=== PATIENT | female | born 1955 | race Caucasian/White ===

== ENCOUNTER → 2018-05-24 | Day surgery (SDC) | payer OTHER, MEDICAID ==
--- NOTE | 2018-05-21 16:16 | PCM.EKG ---
[facility] Test Date: 2018-05-21 Test Time: 16:15:33 Pat Name: JAMES GÓMEZ Department: Room: Gender: F Container Coordinator: : 1955 Requested By: FERNANDO PEACE Order Number: [id number] Reading MD: Arsalan Rosen Measurements Intervals [place] Rate: 77 P: 63 [place]: 148 QRS: 59 QRSD: 84 T: 52 QT: 366 QTc: 414 Interpretive Statements Normal sinus rhythm Normal ECG Compared to ECG 04/09/2018 09:58:25 No significant changes Electronically Signed On 05-22-2018 9:23:35 CDT by Arsalan Rosen Please click the below link to view image of tracing.
[2018-05-21 16:20] LABS: HEMOGLOBIN 12.3 g/dL (12.0-15.0); MEAN CELL HGB 29.6 pg (26-34); MEAN CELL HGB CONCENTRATION 31.5 g/dL (33-37); MEAN PLATELET VOLUME 10.6 fL (7.8-11.0); RED CELL DISTRIBUTION WIDTH 13.9 % (11.5-14.5); WHITE BLOOD CELL 6.5 10^3/uL (4.5-11.0)
[2018-05-21 16:56] LABS: CARBON DIOXIDE 28.1 mmol/L (20.0-32)
[~2018-05-24] VITALS: Ht 172.7 cm; Wt 76.2 kg
[2018-05-24] VITALS (13 sets, daily range): BP systolic 87–122; BP diastolic 51–71
[~2018-05-24] MED LIST: ACET-687 PO; BENADRYL ONE; CLONIDINE 1,000 MCG/10 ML VIAL EP ONE; CYCL10TA2 PO; DECADRON ONE; DEMEROL IV PRN; DILAUDID IV PRN; DIPRIVAN IV ONE; GABA300C10 PO; GABA600T2 PO; IBUP-1131 PO; LACTATED RINGERS 1,000 ML IV SCH; LACTATED RINGERS 1,000 ML SCH; LIDOCAINE 2% VIAL ONE; NAROPIN 0.5% 5 MG/ML VIAL ONE; NS 100ML 100 ML IV ONE; NS 250ML 250 ML IV ONE; PANT40TA3 PO; PARO20TA4 PO; PARO40TA3 PO; PHENERGAN IV PRN; SODIUM CHLORIDE IR ONE; SUBLIMAZE IV PRN; SUBLIMAZE ONE; SULF500T7 PO; TORADOL ONE; TRAM50TA PO; VANCOMYCIN HCL 1 GM ONE; VERSED ONE; ZOFRAN IV PRN; ZOFRAN ONE
--- NOTE | 2018-05-24 11:55 | OPH ---
DATE OF SURGERY: 05/24/2018 PREOPERATIVE DIAGNOSIS: Displaced closed right distal radius fracture. POSTOPERATIVE DIAGNOSIS: Displaced closed right distal radius fracture. OPERATIVE PROCEDURE: Open reduction and internal fixation with a Synthes volar locking plate. SURGEON: David Ledesma MD ANESTHESIA: LMA. TOURNIQUET TIME: 57 minutes at 300 mmHg. DRAINS: None. BLOOD LOSS: 10 mL. DESCRIPTION OF INDICATIONS: The patient is a 62-year-old [id number] female who fell out of her wheelchair about 5 days ago suffering a displaced right distal radius fracture. She also has a fracture of the distal aspect of her ulna, which is nondisplaced. The patient is currently recovering from a left tibial plateau fracture that she suffered about 5-6 weeks ago. The patient's x-rays show that she had a dorsally displaced right distal radius fracture. The neurovascular exam was normal. She was taken to the operating room today for open reduction and internal fixation. DESCRIPTION OF PROCEDURE: The patient was placed on the operating table in the supine position. LMA anesthetic was induced without difficulty. The patient had a well-padded tourniquet placed around the right upper extremity. Right upper extremity was then sterilely prepped and draped. The patient had the arm exsanguinated and the tourniquet was inflated to 300 mmHg. The patient had a volar incision made on the volar radial aspect of the wrist in line with the wrist flexor tendon. The incision was taken through the skin and the subcutaneous tissue. The sheath of the flexor carpi radialis was then opened and the tendon was retracted ulnarly. The fascial level was then opened and then the flexor tendons were again reflected ulnarly. The pronator quadratus was released off of the radial aspect of the distal radius. The fracture was identified and then reduced. We placed a 3-hole volar locking plate about the volar aspect of the distal radius. We placed a 2.7 cortical screw in the oblong hole in the proximal portion of the bone. AP and lateral C-arm view showed satisfactory positioning of the hardware and satisfactory reduction of the fracture. A second 2.7 cortical screw was then placed distally. Again, the reduction appeared to be satisfactory and the hardware position was satisfactory. The patient then had the 3 remaining distal locking screws placed in the distal radius. On the proximal end of the plate, we used a second 2.7 cortical screw with good purchase. Final AP and lateral views showed that the fracture was well reduced and the hardware is in good position. The wounds were then copiously irrigated. The pronator quadratus was closed over the plate with a 2-0 Monocryl. The subcutaneous was then closed with a 2-0 Monocryl in an interrupted manner. The skin was closed with a 3-0 Ethilon in a horizontal mattress method. A compressive dressing and a volar splint was applied. The patient was extubated in the operating room, sent to recovery in stable condition. David Ledesma MD DR: TANIA/rebekah JOB# [id number]
--- NOTE | 2018-05-24 12:02 | DIREP ---
PROCEDURE:XRAY WRIST MIN 3VW-RT COMPARISON:[facility] Jarvis, WRIST 2 VIEW RIGHT, 05/20/2018, 07:45 PM. INDICATIONS:POST ORIF OF THE WRIST FINDINGS: Three views of the right wrist through radiopaque splint material. There has been interval internal fixation with a plate and screw of the comminuted right distal radial fracture. There is also a comminuted distal ulnar fracture and avulsion fracture of the ulnar styloid which demonstrates improved alignment on comparison to prior. No unexpected radiopaque foreign body. CONCLUSION: 1. Interval fixation with a plate and screw of comminuted right distal radial fracture. 2. Improved alignment of comminuted right ulnar fracture. Dictated by: Emely Cook MD on 05/24/2018 at 11:58 AM
== END | disposition home or self-care (01) ==
LOC: SDC 04:56
PROVIDERS: ATTEND Orthopaedic Surgery
DX: S52.591A Other fractures of lower end of right radius, initial encounter for closed fracture (principal); W07.XXXA Fall from chair, initial encounter; Y93.89 Activity, other specified; Y92.89 Other specified places as the place of occurrence of the external cause; Y99.8 Other external cause status; F17.210 Nicotine dependence, cigarettes, uncomplicated; E66.3 Overweight; Z68.25 Body mass index [BMI] 25.0-25.9, adult; Z90.710 Acquired absence of both cervix and uterus; Z90.49 Acquired absence of other specified parts of digestive tract; Z88.1 Allergy status to other antibiotic agents; Z88.0 Allergy status to penicillin; Z79.1 Long term (current) use of non-steroidal anti-inflammatories (NSAID); Z79.899 Other long term (current) drug therapy; Z98.890 Other specified postprocedural states; Z80.7 Family history of other malignant neoplasms of lymphoid, hematopoietic and related tissues; Z80.41 Family history of malignant neoplasm of ovary; Z82.5 Family history of asthma and other chronic lower respiratory diseases
CPT/HCPCS: 25607; 36415 ×2; 64415; 73110; 76000; 80051; 84132; 84439; 84443; 85027; 93005; J1100; J1200; J1885; J2001 ×2; J2250; J2405; J2795; J3010; J3490; J7030; J7050 ×2; A4217; C1713

== ENCOUNTER → 2018-07-16 | Outpatient (CLI) | payer OTHER, MEDICAID ==
[~2018-07-16] MED LIST changes: -BENADRYL ONE; -CLONIDINE 1,000 MCG/10 ML VIAL EP ONE; -DECADRON ONE; -DEMEROL IV PRN; -DILAUDID IV PRN; -DIPRIVAN IV ONE; -LACTATED RINGERS 1,000 ML IV SCH; -LACTATED RINGERS 1,000 ML SCH; -LIDOCAINE 2% VIAL ONE; -NAROPIN 0.5% 5 MG/ML VIAL ONE; -NS 100ML 100 ML IV ONE; -NS 250ML 250 ML IV ONE; -PHENERGAN IV PRN; -SODIUM CHLORIDE IR ONE; -SUBLIMAZE IV PRN; -SUBLIMAZE ONE; -TORADOL ONE; -VANCOMYCIN HCL 1 GM ONE; -VERSED ONE; -ZOFRAN IV PRN; -ZOFRAN ONE
[2018-07-16 10:47] LABS: HEMOGLOBIN 12.9 g/dL (12.0-15.0); MEAN CELL HGB 28.7 pg (26-34); MEAN CELL HGB CONCENTRATION 30.9 g/dL (33-37); MEAN CORP VOLUME 93.1 fL (78-100); MEAN PLATELET VOLUME 10.1 fL (7.8-11.0); RED CELL DISTRIBUTION WIDTH 14.3 % (11.5-14.5); WHITE BLOOD CELL 5.8 10^3/uL (4.5-11.0)
[2018-07-16 11:29] LABS: CALCIUM 9.6 mg/dL (8.4-10.5); CARBON DIOXIDE 28.1 mmol/L (20.0-32)
== END | disposition home or self-care (01) ==
LOC: LAB 10:30
PROVIDERS: ATTEND Nurse Practitioner Family
DX: E55.9 Vitamin D deficiency, unspecified (principal); R53.83 Other fatigue; J44.9 Chronic obstructive pulmonary disease, unspecified; R53.81 Other malaise
CPT/HCPCS: 36415; 80053; 80061; 82306; 82607; 83970; 84100; 84439; 84443; 84480; 85027

== ENCOUNTER → 2018-07-23 | Outpatient (CLI) | payer OTHER, MEDICAID ==
--- NOTE | 2018-07-23 13:25 | DIREP ---
PROCEDURE:Digital Screening Mammogram TECHNIQUE:MLO and CC digital images of each breast are provided. Computer Assisted Detection (CAD) was utilized. COMPARISON:None. INDICATIONS:SCREENING BREAST COMPOSITION:There are scattered areas of fibroglandular density. FINDINGS:There are no grouped microcalcifications, masses, or architectural distortions to suggest malignancy. IMPRESSION:No mammographic evidence of malignancy. RECOMMENDATIONS:Routine Screening Mammography per [employer] guidelines. OVERALL FINAL ASSESSMENT:BI-RADS 1 - Negative Mammogram Note: This facility participates in a mammography screening patient reminder system. Dictated by: Juan Javed MD on 07/23/2018 at 01:21 PM
--- NOTE | 2018-07-23 15:01 | DIREP ---
PROCEDURE:BONE DENSITY PERIPHERAL (bilateral hips and left forearm) INDICATIONS:S/P MENOPAUSAL COMPARISON:None. FINDINGS: Femur Proximal RIGHT femur bone mineral density (BMD) (g/cm2): 0.679 T-score : -2.6 Proximal LEFT femur bone mineral density (BMD) (g/cm2): 0.736T-score: -2.2 LEFT FOREARM 1/3: bone mineral density (g/cm squared): 0.659T-score: -2.6 UD: bone mineral density (g/cm squared): 0.326T-score: -2.0 Total: bone mineral density (g/cm squared): 0.489T-score: -3.2 CONCLUSION:1. Osteoporosis. 2. Based on the [place] FRAX study, the patient's 10-year probability of a major osteoporotic fracture (clinical spine, forearm, hip or shoulder) is 19.4 %, and the 10-year probability of a hip fracture is 5.2 %. SUGGESTED RECOMMENDATIONS: Normal & Osteopenia:Consideration should be given to use of calcium supplementation, daily multiple vitamins and adequate exercise, as preventive measures against osteoporosis, if clinically indicated. Osteoporosis & Severe Osteoporosis:In addition to the above, consideration should be given to medical therapy against osteoporosis, if clinically indicated. Dictated by: Car Bhatt MD on 07/23/2018 at 01:52 PM
== END | disposition home or self-care (01) ==
LOC: RAD 10:30
PROVIDERS: ATTEND Nurse Practitioner Family
DX: M81.0 Age-related osteoporosis without current pathological fracture (principal); Z12.31 Encounter for screening mammogram for malignant neoplasm of breast; Z78.0 Asymptomatic menopausal state
CPT/HCPCS: 77067; 77080

== ENCOUNTER → 2018-08-26 | Outpatient (CLI) | payer OTHER, MEDICAID ==
[~2018-08-26] MED LIST changes: -GABA600T2 PO; +GABA600T7 PO
--- NOTE | 2018-08-26 13:28 | DIREP ---
PROCEDURE:MR KNEE WITHOUT CONTRAST [Right] TECHNIQUE:Multi-planar, multi sequence MR images of the right knee were obtained without contrast. COMPARISON:[facility], CT, CT KNEE WO CONTRAST RIGHT, 04/08/2018, 04:12 PM. [facility], CR, XRAY KNEE 1-2 VWS-RT, 04/09/2018, 09:55 AM. INDICATIONS:MEDIAL MENISCAL TEAR FINDINGS: MENISCI:Longitudinal tear involving the posterior horn of the medial meniscus with extension into the superior and inferior articular surfaces (images 7-9, series 501). Mild degenerative signal within the anterior horn of the lateral meniscus. Otherwise unremarkable. CRUCIATE LIGAMENTS:Normal. The ACL and PCL are intact and unremarkable. COLLATERAL LIGAMENTS:Normal. The MCL and LCL complex are intact and unremarkable. PATELLOFEMORAL: The extensor mechanism and patellar retinacula are intact and unremarkable. Small joint effusion with mild associated synovitis. HYALINE CARTILAGE:A thin, full-thickness, cartilage fissure is seen within the central weight-bearing surface of the lateral tibial plateau at the site of the previously seen nondepressed lateral tibial plateau fracture (image 19, series 801). Mild tricompartmental cartilage thinning and irregularity, most prominently involving the lateral compartment and the lateral patellar facet. No additional full-thickness cartilage defect. BONES:Tiny tricompartmental osteophytes. Minimal subchondral cystic changes and sclerosis are seen within the central weight-bearing surface of the lateral tibial plateau at the site of prior fracture. A 7 mm focal fat rest is seen within the lateral aspect of the proximal tibial metaphysis (image 20, series 801). Otherwise unremarkable. No acute/subacute fracture. No contusion or suspicious osseous lesion. OTHER:Minimal infrapatellar subcutaneous edema. Otherwise unremarkable. CONCLUSION: 1. Longitudinal tear involving the posterior horn of the medial meniscus extending to both articular surfaces. 2. Thin, full-thickness, cartilage fissure in the weight-bearing surface of the lateral tibial plateau at the site of the previously seen nondepressed lateral tibial plateau fracture. Associated focal underlying subchondral cystic changes and sclerosis are also noted. No acute or subacute fracture. 3. Mild right knee osteoarthritis with a small joint effusion and mild synovitis. Dictated by: Tahir Fowler MD on 08/26/2018 at 01:13 PM
== END | disposition home or self-care (01) ==
LOC: MRI 09:04
PROVIDERS: ATTEND Orthopaedic Surgery
DX: S83.241A Other tear of medial meniscus, current injury, right knee, initial encounter (principal); M17.11 Unilateral primary osteoarthritis, right knee; M25.461 Effusion, right knee; M65.861 Other synovitis and tenosynovitis, right lower leg; M25.761 Osteophyte, right knee; X58.XXXA Exposure to other specified factors, initial encounter; Y93.89 Activity, other specified; Y92.89 Other specified places as the place of occurrence of the external cause; Y99.8 Other external cause status
CPT/HCPCS: 73721

== ENCOUNTER 2018-09-03 07:15 | Day surgery (SDC) | payer OTHER, MEDICAID ==
[2018-09-02 15:43] VITALS: BP 109/71
--- NOTE | 2018-09-02 16:08 | PCM.EKG ---
[facility] Test Date: 2018-09-02 Test Time: 16:02:16 Pat Name: JAMES GÓMEZ Department: Room: Gender: F Director Dance: AWLVN : 1955 Requested By: FERNANDO PEACE Order Number: [id number] Reading MD: Arsalan Rosen Measurements Intervals [place] Rate: 83 P: 72 [place]: 138 QRS: 59 QRSD: 74 T: 59 QT: 368 QTc: 432 Interpretive Statements Normal sinus rhythm Normal ECG Compared to ECG 05/21/2018 16:15:33 No significant changes Electronically Signed On 09-03-2018 9:41:15 [employer]ES [employer] MARKETING EXECUTIVE by Arsalan Rosen Please click the below link to view image of tracing.
[2018-09-02 16:18] LABS: BASOPHIL % 0.3 % (0.0-0.2); EOSINOPHIL # 0.1 10^3/uL (0.0-0.2); EOSINOPHIL % 1.9 % (0.0-5.0); HEMOGLOBIN 12.7 g/dL (12.0-15.0); LYMPHOCYTES # 1.3 10^3/uL (1.0-4.8); LYMPHOCYTES % 22.1 % (24.0-44.0); MEAN CELL HGB 28.8 pg (26-34); MEAN CELL HGB CONCENTRATION 32.4 g/dL (33-37); MEAN CORP VOLUME 88.9 fL (78-100); MEAN PLATELET VOLUME 10.7 fL (7.8-11.0); MONOCYTES # 0.5 10^3/uL (0.3-0.8); MONOCYTES % 7.9 % (5.0-12.0); NEUTROPHIL # 3.9 10^3/uL (1.8-7.7); NEUTROPHILS % 67.6 % (41.0-85.0); RED CELL DISTRIBUTION WIDTH 14.2 % (11.5-14.5); WHITE BLOOD CELL 5.8 10^3/uL (4.5-11.0)
[2018-09-02 16:31] LABS: CARBON DIOXIDE 25.8 mmol/L (20.0-32)
[~2018-09-03] VITALS: Ht 172.7 cm; Wt 78.9 kg
[2018-09-03] VITALS (8 sets, daily range): BP systolic 100–136; BP diastolic 50–81
[~2018-09-03 07:15] MED LIST changes: +CHOL100011 PO; +LACTATED RINGERS 1,000 ML ONE; +LEVO25TA4 PO; +NS 3000ML IRR IR ONE; +SODIUM CHLORIDE IR ONE; +TOPI25CA12 PO; +XYLOCAINE 2%-EPI 1:100,000 ONE; +[UNRECOGNIZED DRUG - OTHER] PO
[2018-09-03] MEDS ORDERED: TOPI25CA12 PO (07:33)
[2018-09-03] MEDS ORDERED: TRANSDERM-SCOP TD ONE (07:39)
[2018-09-03] MEDS ORDERED: LACTATED RINGERS 1,000 ML IV SCH (08:00)
[2018-09-03] MEDS ORDERED: ZOFRAN ONE (08:38)
[2018-09-03] MEDS ORDERED: DECADRON ONE (08:38)
[2018-09-03] MEDS ORDERED: DIPRIVAN IV ONE (08:39)
[2018-09-03] MEDS ORDERED: TORADOL ONE (08:39)
[2018-09-03] MEDS ORDERED: SUBLIMAZE ONE (08:39)
[2018-09-03] MEDS ORDERED: LIDOCAINE 2% VIAL ONE (08:39)
[2018-09-03] MEDS ORDERED: DILAUDID ONE (08:39)
[2018-09-03] MEDS ORDERED: EPHEDRINE SULFATE ONE (09:45)
[2018-09-03] MEDS ORDERED: TRAM-47 PO (10:07)
--- NOTE | 2018-09-03 10:58 | OPH ---
DATE OF SURGERY: 09/03/2018 PREOPERATIVE DIAGNOSIS: Medial meniscal tear, right knee. POSTOPERATIVE DIAGNOSES: 1. Medial meniscal tear, right knee. 2. Lateral meniscal tear, right knee. 3. 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 OPERATIVE PROCEDURE: 1. Arthroscopy of the right knee with partial medial and lateral meniscectomies. 2. Chondroplasty of the right patellofemoral joint. SURGEON: David Ledesma MD ANESTHESIA: LMA. TOURNIQUET TIME: None. BLOOD LOSS: 20 mL DESCRIPTION OF INDICATIONS: The patient is a 63-year-old female with painful popping and catching about the right knee. She suffered a lateral tibial plateau fracture 4-5 months ago that was nondisplaced and was treated conservatively. The patient's fracture has healed, but she has had several episodes of painful popping about the knee and pain with weightbearing. Her plain x-rays did not show any arthritic changes about the knee. She had tenderness about the medial joint line with a positive Ramya test. The MRI scan showed a tear of the medial meniscus. Her lateral tibial plateau fracture had healed in good alignment. Because of the continued painful mechanical symptoms, which did not improve with time, home exercise program, cortisone injection or anti-inflammatories, the patient was taken to the operating room for arthroscopy. DESCRIPTION OF PROCEDURE: The patient was placed on the operating table in the supine position. LMA anesthetic was induced without difficulty. The patient had the right thigh padded and a tourniquet was applied. Right lower extremity was then sterilely prepped and draped. The portal tracts were made superolateral, anterolateral and anteromedial after the area was injected with Marcaine with epinephrine. The arthroscope was placed in the suprapatellar pouch. There were some mild hypertrophic synovium noted, but no loose bodies. The patellofemoral joint had grade 2-3 chondromalacia about the patella and later in the case, a shaver was introduced and any loose articular cartilage about the patellofemoral joint was removed with the shaver. The patient then had the medial and lateral gutters viewed. There were no osteophytes about the distal femur. No loose bodies were noted. The medial compartment was entered. The patient was noted to have a full thickness tear of the posterior horn of the medial meniscus. Using an upbiter and a shaver, a partial medial meniscectomy was performed of the medial side. There was some mild chondromalacia about the medial femoral condyle. It was smoothed with the shaver. The medial tibial plateau cartilage was intact. The intercondylar notch was viewed. The anterior and posterior cruciate ligaments were normal. The knee was then placed in [id number]-[id number] position. The patient was noted to have a tear of the posterior middle horn of the lateral meniscus. Using a straight biter as well as a shaver, the partial lateral meniscectomy was performed. The articular cartilage about the lateral tibial plateau had some grade 2-3 chondromalacia that was shaved. The lateral femoral condyle was intact. Arthroscopic equipment was removed from the knee. The portal tracts were closed with 3-0 Ethilon in an interrupted manner. A compressive dressing was applied. The patient was extubated in the operating room, sent to recovery in stable condition. David Ledesma MD DR: TANIA/rebekah JOB# [id number]
== END 2018-09-03 11:10 | disposition home or self-care (01) ==
LOC: SDC 07:15
PROVIDERS: ATTEND Orthopaedic Surgery
DX: S83.281A Other tear of lateral meniscus, current injury, right knee, initial encounter (principal); S83.241A Other tear of medial meniscus, current injury, right knee, initial encounter; M22.41 Chondromalacia patellae, right knee; M67.261 Synovial hypertrophy, not elsewhere classified, right lower leg; F17.210 Nicotine dependence, cigarettes, uncomplicated; M17.11 Unilateral primary osteoarthritis, right knee; M81.0 Age-related osteoporosis without current pathological fracture; K21.9 Gastro-esophageal reflux disease without esophagitis; E66.3 Overweight; Z68.26 Body mass index [BMI] 26.0-26.9, adult; Y93.89 Activity, other specified; X58.XXXA Exposure to other specified factors, initial encounter; Y92.89 Other specified places as the place of occurrence of the external cause; Y99.8 Other external cause status; Z88.0 Allergy status to penicillin; Z88.1 Allergy status to other antibiotic agents; Z79.1 Long term (current) use of non-steroidal anti-inflammatories (NSAID); Z79.899 Other long term (current) drug therapy; Z90.710 Acquired absence of both cervix and uterus; Z98.890 Other specified postprocedural states; Z80.41 Family history of malignant neoplasm of ovary; Z83.6 Family history of other diseases of the respiratory system
CPT/HCPCS: 29880; 36415; 80051; 85025; 93005; A4217 ×2; A4649 ×3; J1100; J1170; J1885; J2001; J2405; J3010; J3490 ×2; J7120

== ENCOUNTER → 2022-04-28 | Outpatient (CLI) | payer MEDICARE, MEDICAID ==
[~2022-04-28] MED LIST changes: +ASPI-667 PO; +CYCL10TA19 PO; -CYCL10TA2 PO; -LACTATED RINGERS 1,000 ML ONE; +MAGN400T22 PO; -NS 3000ML IRR IR ONE; +POTA-129 PO; -SODIUM CHLORIDE IR ONE; +TRAM-47 PO; -XYLOCAINE 2%-EPI 1:100,000 ONE
--- NOTE | 2022-04-28 16:46 | DIREP ---
PROCEDURE:MRI - THORACIC SPINE WITHOUT CONTRAST COMPARISON:None. INDICATIONS:Spondylolisthesis, site unspecified TECHNIQUE:A variety of imaging planes and parameters were utilized for visualization of suspected pathology about the thoracic spine. Images were performed without gadolinium contrast. FINDINGS VERTEBRAE:Marrow signal is age appropriate. Mild superior endplate T10 compression which appears remote, no underlying marrow edema. Ventral disc osteophyte T12-L1 and to lesser extent T4-5. ALIGNMENT:No measurable listhesis. DISCS:Minimal.dorsal disc bulge T8-9 and T10-11. SPINAL CORD/CONUS:Normal signal and contour, no intrinsic mass lesion or compression seen. Multiple perineural root sleeve cysts are seen within the foramina at multiple levels which are typically incidental and asymptomatic. PARASPINAL AREA:Large hiatal hernia. Indeterminate 1.6 x 1.2 cm left adrenal nodule. CONCLUSION: 1. Mild remote superior endplate T10 compression. 2. Multiple perineural root sleeve cyst which are typically asymptomatic. 3. Mild multilevel thoracic spondylosis. 4. Large hiatal hernia. 5. Left adrenal nodule indeterminate by thoracic spine MRI. Recommend dedicated MRI with adrenal mass protocol with and without contrast to further evaluate. Nodule was present on prior March 2021 abdomen/pelvis CT. Dictated by: Johnathon Conn M.D. on 04/28/2022 at 04:38 PM
--- NOTE | 2022-04-28 17:11 | DIREP ---
PROCEDURE:MRI SPINE LUMBAR W&W/O COMPARISON:[facility], MR, MRI SPINE LUMBAR W/O, 04/23/2017, 10:37 AM. [facility] Jarvis, XRAY SPINE LUMBAR 2-3 VWS, 03/23/2022, 09:43 AM. INDICATIONS:M43.10 Spondylolisthesis, site unspecified TECHNIQUE:A comprehensive examination was performed utilizing a variety of imaging planes and imaging parameters to optimize visualization of suspected pathology. Images were performed without intravenous gadolinium contrast. FINDINGS: ALIGNMENT:Anterolisthesis of L4 on L5 measuring 4 mm.. VERTEBRA:Dorsal in the anterior lumbar fixation hardware L4 and L5 has been placed since prior with interbody fusion at L4-5 appearing solid. Mild to moderate inferior endplate L3 compression deformity which appears acute given marrow edema and new from comparison. Superior endplate L2 compression deformity centrally which is new from prior examination with approximately 40% loss height Moderate anterior L1 compression deformity which appears remote but is progressed since comparison. CORD/CAUDA EQUINA:Normal size, contour, and signal intensity. PARASPINAL AREA:Normal with no visible mass. OTHER:No enhancing epidural scar seen. LUMBAR DISC LEVELS T12-L1:Mild disc bulge. Mild facet arthropathy. No central canal or neural foraminal stenosis. L1-L2:Dorsal disc bulge extending into the floor of the neural foramina with minimal narrowing. No central canal stenosis. Moderate facet arthropathy. L2-L3:Dorsal disc bulge extending into the floor of the neural foramina eccentric to the right producing mild right neural foraminal narrowing. Severe bilateral ligamentum flavum/facet hypertrophy. Mild spinal stenosis. L3-L4:Susceptibility artifact somewhat limits detail. Dorsal disc bulge extending in the floor of the neural foramina, degree of narrowing limited by susceptibility artifact. Severe ligamentum flavum/facet hypertrophy, findings combine to produce moderate spinal stenosis, sagittal AP canal dimension 7 mm. Lateral recess narrowing suspected. L4-L5:Anterolisthesis. Fixation hardware with susceptibility artifact somewhat limiting detail. Mild bilateral neural foraminal narrowing suggested. Laminectomy. Moderate residual facet arthropathy. L5-S1:Mild annular bulge. Mild facet arthropathy. No central canal or neural foraminal stenosis. CONCLUSION: 1. Interval dorsal and anterior lumbar fixation hardware placement at L4 on L5 with interbody fusion.. L4 laminectomy. 2. Acute to subacute moderate inferior endplate L3 compression fracture without significant bony retropulsion. 3. Progression of superior endplate L1 and L2 compression deformity since prior. 4. Dorsal disc bulge and severe ligamentum flavum/facet hypertrophy L3-4 contribute to moderate spinal stenosis, neural foramina at this level obscured by susceptibility artifact; however, lateral recess narrowing present. 5. Mild L2-3 spinal stenosis and right neural foraminal narrowing. 6. Mild bilateral L4-5 neural foraminal narrowing. Dictated by: Johnathon Conn M.D. on 04/28/2022 at 05:00 PM
== END | disposition home or self-care (01) ==
LOC: RAD 12:30
PROVIDERS: ATTEND Nurse Practitioner Family
DX: S32.020A Wedge compression fracture of second lumbar vertebra, initial encounter for closed fracture (principal); S32.030A Wedge compression fracture of third lumbar vertebra, initial encounter for closed fracture; S22.070A Wedge compression fracture of T9-T10 vertebra, initial encounter for closed fracture; S33.9XXA Sprain of unspecified parts of lumbar spine and pelvis, initial encounter; M48.061 Spinal stenosis, lumbar region without neurogenic claudication; M47.814 Spondylosis without myelopathy or radiculopathy, thoracic region; K44.9 Diaphragmatic hernia without obstruction or gangrene; M53.87 Other specified dorsopathies, lumbosacral region; G96.191 Perineural cyst; X58.XXXA Exposure to other specified factors, initial encounter; Y93.89 Activity, other specified; Z98.890 Other specified postprocedural states; Y92.89 Other specified places as the place of occurrence of the external cause; Y99.8 Other external cause status
CPT/HCPCS: 72146; 72158; A9579

== ENCOUNTER → 2022-06-22 | Outpatient (CLI) | payer MEDICARE, MEDICAID ==
--- NOTE | 2022-06-22 12:03 | DIREP ---
PROCEDURE:MRI ABDOMEN W & W/O CONTRAST COMPARISON:None. INDICATIONS:E27.8 DISORDERS OF ADRENAL GLAND TECHNIQUE:A comprehensive examination was performed utilizing a variety of imaging planes and imaging parameters to optimize visualization of suspected pathology. Images were obtained both before and after intravenous gadolinium infusion. FINDINGS: LIVER:Steatosis in the liver. Nonenhancing rounded T2 hyperintense, T1 hypo intense observation in the right hepatic lobe adjacent to the anterior lateral capsule within segment 8 measures 1.1 cm consistent with a simple benign cyst. BILIARY:Mild gallbladder distention. No gallbladder wall thickening, pericholecystic fluid and no biliary ductal dilatation. PANCREAS:No lesion, fluid collection, ductal dilatation, or atrophy. SPLEEN:No enlargement or focal lesion. KIDNEYS:Small benign cyst medial cortex upper pole left kidney. No enhancing renal mass no hydronephrosis. ADRENALS:1.5 cm left adrenal nodule. There is loss of signal on out of phase imaging suggesting adrenal adenoma. There is some technical anomaly with the Imaging parameter but the loss of signal is felt to be real. AORTA/VASCULAR:No aneurysm of the abdominal aorta. RETROPERITONEUM:No adenopathy. BOWEL/MESENTERY:No bowel obstruction. ABDOMINAL WALL:No acute findings postoperative changes near in the umbilicus. BONES:Fusion hardware in the lumbar spine. CONCLUSION: 1. Left adrenal adenoma measures 1.5 cm. 2. Steatosis of the liver, mildly enlarged liver. Small cyst in the liver. Dictated by: Sha Chen M.D. on 06/22/2022 at 11:56 AM
== END | disposition home or self-care (01) ==
LOC: RAD 08:29
PROVIDERS: ATTEND Nurse Practitioner Family
DX: D35.02 Benign neoplasm of left adrenal gland (principal); K76.0 Fatty (change of) liver, not elsewhere classified; R16.0 Hepatomegaly, not elsewhere classified
CPT/HCPCS: 74183; A9579

== ENCOUNTER → 2022-08-09 | Outpatient (CLI) | payer MEDICARE, MEDICAID ==
--- NOTE | 2022-08-09 10:24 | DIREP ---
PROCEDURE:MRI SPINE CERVICAL W/O COMPARISON:None. INDICATIONS:CHRONIC PAIN SYNDROME TECHNIQUE:A variety of imaging planes and parameters were utilized for visualization of suspected pathology without contrast. FINDINGS: CRANIOCERVICAL AREA:Normal foramen magnum with no Chiari malformation. ALIGNMENT:Normal. VERTEBRA:No fracture or osseous lesions. SPINAL CORD:Normal size, contour, and signal intensity. PARASPINAL AREA:Normal with no visible mass. OTHER:No additional findings. CERVICAL DISC LEVELS: C2-C3:No significant disc/facet abnormality, spinal stenosis, or foraminal stenosis. C3-C4:There is a small disc osteophyte complex with mild facet hypertrophy. No substantial canal or foraminal stenosis. C4-C5:Small disc osteophyte complex with mild uncovertebral osteophytes facet hypertrophy, ligamentum flavum thickening. Mild spinal canal stenosis. Mild left greater than right neural foraminal stenosis. C5-C6:There is a small disc osteophyte complex. Moderate right and small left uncovertebral osteophytes with bilateral facet hypertrophy. There is moderate spinal canal stenosis. Moderate right and mild left neural foraminal stenosis. C6-C7:There is a small disc osteophyte complex. Right greater left uncovertebral osteophytes and facet hypertrophy. No substantial canal stenosis. Moderate right and mild left neural foraminal stenosis. C7-T1:No significant disc/facet abnormality, spinal stenosis, or foraminal stenosis. CONCLUSION: 1. Mild multilevel degenerative endplate changes and facet hypertrophy contribute to moderate spinal canal stenosis at C5-C6 with moderate right neural foraminal stenosis at C5-C6 and C6-C7. 2. Mild spinal canal and neural foraminal stenosis at other levels as further detailed above. Dictated by: Ton Longoria M.D. on 08/09/2022 at 10:14 AM
== END | disposition home or self-care (01) ==
LOC: RAD 08:42
PROVIDERS: ATTEND Nurse Practitioner Family
DX: M47.812 Spondylosis without myelopathy or radiculopathy, cervical region (principal); M48.02 Spinal stenosis, cervical region; M25.78 Osteophyte, vertebrae; G89.4 Chronic pain syndrome
CPT/HCPCS: 72141